=== PATIENT | female | born 1975 | race Caucasian/White ===

== ENCOUNTER 2016-10-20 23:08 | Emergency (ER) | payer SELFPAY ==
[2016-10-20 23:08] VITALS: BMI 46.7
[2016-10-20 23:39] VITALS: BP 185/86; PULSE 93; TEMP 98.5
[2016-10-21] MEDS ORDERED: Lidocaine 2%-Epinephrine 1:100,000 20ml vial INF ONE (00:27)
--- NOTE | 2016-10-21 00:27 | EDPRACDOC ---
- General Information Chief Complaint: Wound Stated Complaint: ABSCESS Time Seen by Provider: 10/21/16 00:23 Mode of Arrival:: Car Home Medications: Home Medications Albuterol Sulfate [Proventil Hfa] 1 - 2 puff INH Q4H PRN 06/16/16 Oxycodone Immediate Release [Oxycodone Immediate Release (OxyIR)] 5 mg PO Q6H PRN #15 tab 10/21/16 Sulfamethoxazole/Trimethoprim [Bactrim Ds Tablet] 1 tab PO BID #20 tab 10/21/16 Allergies/Adverse Reactions: Allergies Allergy/AdvReac Type Severity Reaction Status Date / Time hydrocodone [From Vicodin] Allergy Itching Verified 10/20/16 23:40 - History of Present Illness Onset: 3-4 days HPI: PT COMPLAINS OF PAINFUL "ABSCESS" IN RIGHT GROIN X 2-3 DAYS, NO DRAINAGE, PT HAS LONG HX OF ABSCESSES. NO FEVER OR CHILLS, DOES FEEL NAUSEATED. Location: Reports: Extremity Last Tetanus: Yes Relevent History Of: Reports: Diabetes Prior Abscess: Reports: Different Pain: Reports: Severe Quality: Reports: Painful, Red Associated Signs & Symptoms: Denies: Chills, Fever, Proximal Streaking ED Past Medical History - History Reviewed Yes Nurses notes reviewed and agree except as marked - Patient Medical History Cardiac History: Reports: Hypertension, Hypercholesterolemia Respiratory History: Reports: Asthma, COPD Psychological History: Reports: Bipolar Disorder. Denies: Depression Systemic History: Reports: Diabetes Additional Past Medical History: HIDRANDRITIS SUPPURATIVE OF ABD AND BREAST - Social Medical History Smoking Status: Heavy tobacco smoker (5 or more cigarettes/day or daily pipe/ cigar) EDM Review of Systems - Review of Systems Constitutional: negative: Chills, Fever Gastrointestinal: Nausea. negative: Diarrhea, Pain, Vomiting Genitourinary: negative: Dysuria, Frequency Integumentary: Wound - Physical Exam Constitutional: Alert (Awake), No apparent distress Oriented to: Time, Person, Place Last recorded Vital Signs: Last Vital Signs Temp 98.5 F 10/20/16 23:35 Pulse 93 10/20/16 23:35 Resp 20 10/20/16 23:35 BP 185/86 H 10/20/16 23:35 Pulse Ox 97 10/20/16 23:35 Oxygen Pulse Oxygen Saturation 97 O2 Device Room Air Oxygen Flow Rate Fraction of Inspired Oxygen ( FIO2) - HEENT Head: Normal ( normocephalic) - Neurologic Memory Impaired: Normal Motor Function: Normal (Normal tone, Pulses 2+ No cyanosis or edema, FROM) Cranial Nerve: Normal (CN II-X11 intact sensation, strength 5/5) Cerebellar: Normal Mood Description: Normal Perception: Normal ED Abscess/Mass Exam - Integumentary Skin: Warm, Dry Mass: Size (3), Red, Tender, Warm, Firm Lymphatics: Normal ED Procedures - Incision and Drainage Informed of risks, benefits and alternatives described.: Yes Informed Consent Signed: Verbal Site: RIGHT LABIA MAJORA Indication: Painful Mass Anesthetic: Lidocaine, with Epi Prep: Betadine Blade Size: 11 Incised Site drained: Reports: Blood, Pus Incised site was: Irrigated, Not Packed with Iodoform - Differential Diagnosis Abscess, Cellulitis Decision Time to Discharge: 00:51 - Departure Disposition: Home Condition: Stable Final Diagnosis: Abscess of right genital labia 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) (ED) Education/Counseling Given To: Patient Education/Counseling Given Regarding: Diagnosis, Treatment, Prognosis, Follow Up Referrals: None,No Provider [Primary Care Provider] - One Week Prescriptions: Continue Albuterol Sulfate [Proventil Hfa] 1 - 2 puff INH Q4H PRN PRN Reason: Shortness Of Breath Oxycodone Immediate Release [Oxycodone Immediate Release (OxyIR)] 5 mg PO Q6H PRN #15 tab PRN Reason: Pain Sulfamethoxazole/Trimethoprim [Bactrim Ds Tablet] 1 tab PO BID #20 tab Discontinued Diphenhydramine [Benadryl] 25 mg PO .WITH NORCO SEE COMM PRN PRN Reason: ITCHING WITH NORCO Hydrocodone Bit/Acetaminophen [[place] 5-325 Tablet] 1 each PO .Q4H SEE COMMENTS Additional Instructions: Keep wound clean and dry, apply warm compresses to affected area 20 mins at a time 4 - 5 times daily, return to the ED for any worsening symptoms or concerns. HIBICLENS SOAP for treatment of MRSA Use as a body wash for one week. Repeat every 4 months. If a sore develops, use the Hibiclens soap to clean it daily until it goes away. Hibiclens is in a teal colored bottle and is over the counter at most drug stores ([facility], etc)
[2016-10-21] MEDS ORDERED: TRIMETHOPRIM-SULFAMETHOXAZOLE TAB PO ONE (00:53)
[2016-10-21] MEDS ORDERED: OXYCODONE HCL 5 MG TABLET PO ONE (00:53)
== END 2016-10-21 01:03 | disposition home or self-care (01) ==
LOC: ED 23:08
DX: N76.4 Abscess of vulva (principal)
CPT/HCPCS: 56405; 99282; J3490